=== PATIENT | female | born 1980 | race Caucasian/White ===

== ENCOUNTER 2021-11-20 07:23 | Day surgery (SDC) | payer BC ==
[2021-11-16 13:21] VITALS: BMI 29.1
--- NOTE | 2021-11-16 15:13 | HP ---
HISTORY AND PHYSICAL DATE OF SURGERY: . HISTORY OF PRESENT ILLNESS: The patient is a 41-year-old 1, para 0-0-1-0, who is admitted with a history of significant dysmenorrhea over the last number of years which has been managed fairly well using NuvaRing as an outpatient. She recently had the NuvaRing changed by the pharmacy to a generic version and had resumption of significant pain as well as some weight gain. Attempts to dispense the product as written were declined by her insurance and so she presented to the office to have further discussions regarding options for treatment. After discussion of choices, she wished to attempt to have a Kyleena placed. She was brought to the office for that, at which time she was found to have significant cervical stenosis despite pretreatment with Cytotec the night before, and I was unable to place the device. As a result, we have opted to proceed to the operating room, as there is really no other alternative available to her at this time. PAST MEDICAL HISTORY: Significant for cervical adenocarcinoma in situ in 2011. She additionally has asthma and migraines. SURGICAL HISTORY: Significant for LEEP procedure, tonsillectomy, tubes in her ears as a child, and an elective interruption of in the past. There has been no reported history of anesthetic concerns. OBSTETRICAL HISTORY: 1, para 0-0-1-0 with one early elective interruption of . Current method of contraception is NuvaRing. GYNECOLOGIC HISTORY: Unremarkable except as listed in history of present illness. There is no history of any infections to include STDs. FAMILY HISTORY: Noncontributory. SOCIAL HISTORY: The patient is and a nonsmoker. She does have a job outside the home, but denies any alcohol, drugs or any other social concerns. CURRENT MEDICATIONS: Current medications include Maxalt as needed and NuvaRing daily. ALLERGIES: IMITREX as potential anaphylactic. REVIEW OF SYSTEMS: Confined to history of present illness. PHYSICAL EXAMINATION: Vital signs are stable. The patient is afebrile. In general, this is a well- developed, well-nourished white female in no acute distress. Her heart has a regular rhythm and rate without murmur. Her lungs are clear to auscultation bilaterally in all jennings. Her abdomen is nondistended, has normoactive bowel sounds, is soft, nontender, and without any palpable masses, hepatosplenomegaly or hernias. Her extremities are without any cyanosis, clubbing, or edema and are nontender to palpation bilaterally. Pelvic examination demonstrates normal external genitalia and BUS with normal vaginal mucosa and cervix. There is no cervical motion tenderness. Uterus is approximately 4 weeks in size, retroverted, mobile, nontender, normal in shape. The adnexa are normal and nontender without mass bilaterally. ASSESSMENT AND PLAN: 1. Cervical stenosis. 2. Severe dysmenorrhea. The patient has been brought to the operating room for placement under anesthesia of a Kyleena intrauterine device, as it could not be safely or comfortably placed in the office. The risks and complications of the procedure have been discussed with the patient, which primarily include uterine perforation. She has understood all of this and has agreed to proceed. MMODL / IJN: [id number] /
[~2021-11-20 07:23] MED LIST: DEXAMETHASONE SOD PHOSPHATE 4 MG/ML 1 ML VIAL IV ONE; HYDROmorphone 0.5 MG/0.5 ML SYRINGE IVP PRN; LACTATED RINGERS 1,000 ML IV SCH; LIDOCAINE 1% (10MG/ML) FOR IV START INTRADERMA PRN; MIDAZOLAM 2 MG/2 ML VIAL IV PRN; ONDANSETRON 4 MG/2 ML VIAL IVP ONE; Pre Op ABX Message 1 EACH MISC MISCELLANE ONE
[2021-11-20 08:07] VITALS: RESP 16; TEMP 97.5
[2021-11-20] MEDS ORDERED: MIDAZOLAM 2 MG/2 ML VIAL IVP ONE (08:24)
[2021-11-20] MEDS ORDERED: ACETAMINOPHEN IV (For NPO) 1,000 MG/100 ML VIAL ONE (08:36)
[2021-11-20] MEDS ORDERED: MIDAZOLAM 2 MG/2 ML VIAL ONE (08:36)
[2021-11-20] MEDS ORDERED: fentaNYL (PF) 50 MCG/ML 2 ML AMP ONE (08:36)
[2021-11-20] MEDS ORDERED: PROPOFOL 10 MG/ML 20 ML VIAL IV ONE (08:36)
[2021-11-20] MEDS ORDERED: KETOROLAC 15 MG/ML 1 ML VIAL IVP PRN (08:57)
[2021-11-20] MEDS ORDERED: ONDANSETRON 4 MG/2 ML VIAL IVP PRN (08:57)
[2021-11-20] MEDS ORDERED: SIMETHICONE 80 MG CHEWABLE PO PRN (08:57)
[2021-11-20] MEDS ORDERED: IBUPROFEN 600 MG TAB PO PRN (08:57)
[2021-11-20] MEDS ORDERED: METOCLOPRAMIDE 5 MG/ML 2 ML VIAL IVP PRN (08:57)
[2021-11-20] MEDS ORDERED: Acetaminophen-Codeine 300-30mg TAB PO PRN ×2 (08:57)
[2021-11-20] MEDS ORDERED: diphenhydrAMINE 50 MG/ML 1 ML VIAL IVP PRN (08:57)
--- NOTE | 2021-11-20 09:05 | P.OP ---
Date of Procedure: 11/20/21 Preoperative Diagnosis: #1. Severe dysmenorrhea #2. Cervical stenosis Postoperative Diagnosis: Same Procedure(s) Performed: Mirena IUD placement under anesthesia Anesthesia: other (Conscious sedation) Surgeon: Javan Inman Estimated Blood Loss (ml): 2 IV fluids (ml): 300 Urine output (ml): 25 Pathology: none sent Condition: stable Disposition: PACU Operative Findings: Preoperative pelvic examination demonstrated a 4-5 week retroverted mobile normal shaped uterus with normal adnexa bilaterally. Intraoperatively, the cervix was noted to be quite small and essentially flush with the apex of the vagina secondary to previous surgery. He was additionally very tightly closed consistent with cervical stenosis from previous surgery. The cervix was able to be dilated and the uterus sounded to approximately 8 cm. Description of Procedure: The patient was prepped and draped in usual fashion after conscious sedation was administered by the anesthesiologist. A weighted speculum was placed and the bladder drained of approximately 25 mL of clear layla urine. The anterior lip of the cervix was grasped with single-tooth tenaculum though the cervix was noted to be relatively flush with the apex the vagina secondary to previous surgical procedures which had also led to the cervical stenosis. A small dilator was utilized and the cervical canal opened without difficulty. A uterine sound was then utilized to measure the depth of the uterus at 8 cm. Serial dilation was carried out to easily admit the Mirena applicator which was placed to the fundus, withdrawn 1 cm in the arms released. After approximately 5 seconds the device was delivered to the fundus and released and the introducer removed. The strings were trimmed to approximate 4 cm in length and all its mentation removed. There was a small point of bleeding at one of the points of the tenaculum which was made hemostatic with simple pressure. Estimated blood loss for the case was less than 2 mL. There were no complications. All sponge, instrument, needle counts were correct. Patient tolerated the procedure well and proceeded to the recovery room in stable condition.
[2021-11-20] MEDS ORDERED: HYDROmorphone 0.5 MG/0.5 ML SYRINGE IVP ONE (09:23)
[2021-11-20] MEDS ORDERED: KETOROLAC 15 MG/ML 1 ML VIAL IVP ONE (09:49)
[2021-11-20 10:17] VITALS: BP 113/75; PULSE 72
== END 2021-11-20 10:40 | disposition home or self-care (01) ==
LOC: OR 07:23
PROVIDERS: ATTEND Obstetrics & Gynecology
DX: N94.6 Dysmenorrhea, unspecified (principal); M48.02 Spinal stenosis, cervical region; J45.909 Unspecified asthma, uncomplicated; G43.909 Migraine, unspecified, not intractable, without status migrainosus; Z85.41 Personal history of malignant neoplasm of cervix uteri; Z79.899 Other long term (current) drug therapy
CPT/HCPCS: 58300; 81025; J2250; J1100; J2405; J3010; J0131; J1885; J2704; J1170